=== PATIENT | female | born 1985 | race Caucasian/White ===

== ENCOUNTER → 2018-06-17 | Outpatient (CLI) | payer OTHER ==
--- NOTE | 2018-06-17 10:12 | EKG ---
FACILITY: [facility] PATIENT NAME: MARYAM VILLALOBOS : [id number] MR: [id number] V: [id number] EXAM DATE: ORDERING PHYSICIAN: MARILYN FIELDS TECHNOLOGIST: Test Reason : O99.419 Blood Pressure : / mmHG Vent. Rate : 090 BPM Atrial Rate : 090 BPM P-R Int : 160 ms QRS Dur : 084 ms QT Int : 338 ms P-R-T Axes : 028 016 017 degrees QTc Int : 413 ms Normal sinus rhythm Normal ECG No previous ECGs available Confirmed by BETH QUIGLEY ([id number]) on 06/17/2018 11:38:59 AM Referred By: Confirmed By:BETH QUIGLEY
== END ==
LOC: RESP 09:54
PROVIDERS: ATTEND Nurse Practitioner Family
DX: O99.419 Diseases of the circulatory system complicating pregnancy, unspecified trimester (principal)
CPT/HCPCS: 93005

== ENCOUNTER 2018-08-25 06:55 | Inpatient (IN) | payer OTHER ==
[~2018-08-25] VITALS: Ht 170.2 cm; Wt 110.7 kg
[2018-08-25] MEDS ORDERED: OXYTOCIN 30 UNIT/D5LR 500 ML 500 ML IV PRN ×2 (06:58→14:34)
[2018-08-25] MEDS ORDERED: ceFAZolin(*) 2GM/D5W 50ML 50 ML IVPB PRN (06:58)
[2018-08-25] MEDS ORDERED: DLR(*) 1000 ML BAG 1,000 ML IV SCH (06:58)
[2018-08-25] MEDS ORDERED: FAMOTIDINE(*) 20MG/50ML PREMIX 50 ML IVPB PRN (06:58)
[2018-08-25] MEDS ORDERED: LIDOCAINE/SOD BICARB 8.4% SYR SC PRN (07:00)
[2018-08-25] MEDS ORDERED: TERBUTALINE SULF 1 MG/ML VIAL SUBQ PRN (07:00)
[2018-08-25] MEDS ORDERED: cefOXitin/DEX(*) 2GM/50ML PREM 50 ML IVPB PRN (07:00)
[2018-08-25] MEDS ORDERED: METOCLOPRAMIDE 10 MG/2 ML SDV IVP PRN (07:00)
[2018-08-25] MEDS ORDERED: fentaNYL CITR 100 MCG/2 ML AMP IVP PRN (07:00)
[2018-08-25] MEDS ORDERED: LIDOCAINE 1% LOCAL 300 MG/30ML INJ PRN (07:00)
[2018-08-25 07:53] LABS: PLATELET COUNT, AUTOMATED 147 K/uL (150-450)
[2018-08-25 08:06] VITALS: BP 117/75; Ht 170.2 cm; Wt 110.7 kg
[2018-08-25] MEDS ORDERED: CALC-515 PO (08:06)
[2018-08-25] MEDS ORDERED: ACET325C5 (08:06)
[2018-08-25] MEDS ORDERED: PNV1COMB5 (08:06)
[2018-08-25] MEDS: LR(*) 1000 ML BAG 1,000 ML IV PRN ×3 (08:10→13:13)
--- NOTE | 2018-08-25 08:30 | History & Physical ---
History of Present Illness Age of Patient: 32 : 4 Para or TPAL: 3003 EDC per LMP: Aug 24, 2018 EDC per U/S: Aug 24, 2018 (c/w 8w6d) Estimated Gestational Age: 40.1 Chief Complaint Induction of labor for late term History of Present Illness Patient is a 32 you who presents to the hospital for late term induction of labor. She denies any NICHOLS, CP, SOB, F/C, N/V, RUQ pain, changes in vision, vaginal bleeding or discharge, LOF. +FM. She reports like her previous pregnancies, this has remained uncomplicated. History Patient's Blood Type: O Positive Rubella Status: Immune Group B Strep Screen: Negative Miscellaneous Screens/Cultures: Antibody screen neg, RPR NR, Hep B neg, GC/CT neg Obstetrical History: Past Medical History: Noncontributory Allergies: Coded Allergies: Adhesive (Verified Allergy, Mild, 01/13/09) Social History: . Three children at home. Denies alcohol or tobacco. Feels safe at home. Med Rec Home Meds Reported Medications Calcium Carbonate (TUMS) 200 Mg Tab.chew, 200 MG PO, TAB.CHEW 08/25/18 Acetaminophen (Tylenol) 325 Mg Capsule, 325 08/25/18 Pnv #116/Iron Fumarate/Fa/Dha (EXPECTA COMBO PACK) 1 Each Combo..pkg 08/25/18 Exam General Exam Vital Signs Vital Signs Date Time Temp Pulse Resp B/P (MAP) Pulse Ox O2 Delivery O2 Flow Rate FiO2 08/25/18 08:06 96.8 88 18 117/75 (89) 96 Room Air General Apperance: Alert/Awake/No Acute Distress Neuro: No Gross deficits Eyes: Normal Extraocular Movement & Vison Respiratory: No Respiratory Distress Abdomen: Gravid - Non-Tender Extremities: No Cyanosis,Clubbing or Edema Psychological: Alert & Oriented X3, Appropriate Mood & Affect Cervical Dialation: 4 Cervical Effacement (%): 70 Cervical Consistency: Soft Cervical Position: Posterior Station: -2 Presentation: Vertex Uterine Contractions(Q min): 3 Uterine Contraction Strength: Mild UC Resting Tone: Soft Fetus Feeling Movement?: Yes Heart Tones: 140 Heart Tone Variabilty: Moderate FHT Accelerations: Present FHT Decelerations: None FHT Category: I Review of Systems Constitutional: Denies: fever, chills, fatigue, malaise, insomnia, night sweats, weight loss, weight gain, other Neurological: Denies: confusion, loss of consciousness, dizziness, headaches, hearing loss, vision changes, memory loss, numbness / tingling, weakness, difficulty speaking, ringing in the ears, tremor, other HEENT: Denies: vision changes, eye pain, eye discharge, eye swelling, eye red ness, sensitivity to light, hearing loss, ear pain, ear drainage, ringing in the ears, sinus congestion, sinus headache, post nasal drip, nose bleeds, sore throat, swallowing problems, losing voice, other Cardiovascular: Denies: chest pain, swelling to legs or feet, dizziness, fainting, racing / pounding heart, other Breasts: Denies: breast pain, breast lump, nipple discharge, other breast concern Respiratory: Denies: wheezing, shortness of breath, cough, non-productive cough, productive cough, pain with breathing, chest congestion, other Gastrointestinal: Denies: abdominal pain, nausea, vomiting, loose stool, diarrhea, constipation, bloody stool, black tarry stool, rectal bleeding, bloody vomiting, coffee ground vomiting, acid reflux, heartburn, stool incontinence, loss of appetite, other Genitourinary: Denies: pain with urination, bloody urine, cloudy urine, foul smelling urine, urinary frequency, urinary urgency, urinary incontinence, waking to urinate at noc, irregular\missed period, vaginal discharge, pain with intercourse, breast mass, breast pain, other Integumentary: Denies: rash, sore, mole, mass / lump, blistering, scaling, itching, redness, drainage, acne, other Pyschiatric: Denies: depression, anxiety, mood swings, insomnia, sleeping too much, loss of appetite, increased appetite, loss of interest, feeling hopeless, feeling worthless, self harm, suicidal ideation, suicide attempt / actions, alcohol abuse, drug abuse, other Endocrine: Denies: chills, unintentional weight loss, unintentional weight gain, flushing, hair loss, Facial Hair, excessive hunger, excessive thirst, other Allergy / Immunology: Denies: rash, itching, wheezing, facial swelling, tongue swelling, itchy eyes, sinus congestion, lymph node swelling, seasonal allergies, year round allergies, other Medical Decision Making Data Points Result Diagram: 08/25/18 0744 VTE Prophylasis: Adult Deep Vein Thrombosis/Pulmonary: No Pharmacological Contraindicati: Pt at Low Risk for VTE Mechanical Contraindications: Pt at Low Risk for VTE Assessment and Plan Hospital Day: 1 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 Plan for . ) GERRY DAVIDSON MD Aug 25, 2018 08:30
[2018-08-25] MEDS ORDERED: BUPIVACAINE 0.25% MPF INJ EPI PRN (09:10)
[2018-08-25] MEDS ORDERED: LIDOCAINE/PF 2% 200MG/10ML AMP 200 MG/10 ML AMPUL EPI PRN (09:10)
[2018-08-25] MEDS ORDERED: LIDO/EPI 2% MPF 1:200,000 20ML EPI PRN (09:10)
[2018-08-25] MEDS ORDERED: fentaNYL CITR 100 MCG/2 ML AMP IT PRN (09:10)
[2018-08-25] MEDS ORDERED: FENTANYL/ROPIVACAINE 100 ML BAG EPI PRN (09:10)
[2018-08-25] MEDS ORDERED: BUPIVACAINE 0.5% INJ 30ML VIAL EPI PRN (09:10)
--- NOTE | 2018-08-25 09:27 | Labor Progress Note ---
Labor Subjective Progress Notes Feeling Movement?: Yes Vaginal Discharge/Fluid: Clear Fluid Labor Pain: Mild Neurological: No Headache, No Other Eyes: No Visual Disturbances Labor Objective Vital Signs Vital Signs Date Time Temp Pulse Resp B/P (MAP) Pulse Ox O2 Delivery O2 Flow Rate FiO2 08/25/18 08:06 96.8 88 18 117/75 (89) 96 Room Air Vaginal Discharge/Fluid?: Clear Fluid Cervical Dialation: 5 Cervical Effacement (%): 70 Cervical Consistency: Soft Cervical Position: Posterior Station: -2 Presentation: Vertex Uterine Contractions(Q min): 2 Uterine Contraction Strength: Mild UC Resting Tone: Soft Fetus Heart Tone Variabilty: Moderate FHT Accelerations: Present FHT Decelerations: None FHT Category: I Other Result Diagram: 08/25/18 0744 Assessment and Plan INFORMATION AND REFERRAL DIRECTOR Assessment: Stable INFORMATION AND REFERRAL DIRECTOR Plan: Routine Labor/Induct Care (Continue with pitocin. patient to receive epidural upon request. ) GERRY DAVIDSON MD Aug 25, 2018 09:27
[2018-08-25] MEDS ORDERED: ONDANSETRON 4 MG/2 ML VIAL ONE (10:26)
--- NOTE | 2018-08-25 10:58 | Anesthesia OB Pre-Anes Eval ---
History of Present Illness Anesthesia Start Date: Aug 25, 2018 Anesthesia Start Time: 09:45 OB Anesthesia Diagnosis: induction - elective, spontaneous ROM, other (Post BASIM 40 weeks + 6 days) EDC: Aug 24, 2018 : 4 Para: 3 Vital Signs: Vital Signs Date Time Temp Pulse Resp B/P (MAP) Pulse Ox O2 Delivery O2 Flow Rate FiO2 08/25/18 08:06 96.8 88 18 117/75 (89) 96 Room Air Pain Ratin Heart Tones: 140 Result Diagram: 08/25/18 0744 Height (Inches): 67.00 Weight (Pounds): 244 BMI (kg/m2): 38 Past Medical History Medical History: obesity Previous Anesthesia: general, epidural Attended Childbirth Classes?: No Hx Anesthesia Reactions: Yes (Low BP after past epidural) Hx Family Anesthesia Reaction: No Current Medications: pitocin Past Complications: obesity Home Meds Reported Medications Calcium Carbonate (TUMS) 200 Mg Tab.chew, 200 MG PO, TAB.CHEW 08/25/18 Acetaminophen (Tylenol) 325 Mg Capsule, 325 08/25/18 Pnv #116/Iron Fumarate/Fa/Dha (EXPECTA COMBO PACK) 1 Each Combo..pkg 08/25/18 Allergies: Coded Allergies: Adhesive (Verified Allergy, Mild, 01/13/09) Anesthesia OB ROS Neurological: No migraines/headaches, No seizures, No neuropathy, No other ENT: Denies Tooth caps, Denies Loose teeth, Denies Chipped teeth, Denies Dentures, Denies Bridges, Denies Retainers, Denies Veneers, Denies Implants, Denies Tongue ring, Denies Other Airway Class: ll GI ROS: clear liquids Last Solids Date: Aug 25, 2018 Last Solids Time: 06:45 ROS: No Herpes, No STD(s), No Liver Disease, No Renal Disease, No Other Endocrine ROS: No diabetes, No gestational diabetes, No thyroid disorder, No other Musculoskeletal ROS: low back pain ASA Classification: 2 Assessment and Plan Anesthesia Plan: CSE 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 Calm and cooperative. FABI GILL CRNA Aug 25, 2018 10:58
--- NOTE | 2018-08-25 11:17 | Procedure Note ---
Anesthetic Placement Note Anesthesia Plan: CSE Permit for Anesthesia Signed: Yes Anesthesia Technique: Patient Sitting Anesthesia Prep: Betadine (x 3 allowed to dry 3 minutes, clear fenestrated drape. Pt. and BUTCHER with hats.) Interspace: L 3-4 Local Anesthetic: 1% Lidocaine, 25 Gauge Needle Amount Local - cc's: 1.5 Anesthesia Needle: 25g Pencan w/Introducer Anesthesia Attempts: 1 (Redirections x 3 for OS) Loss of Resistance: Normal Saline Depth of CAIO (cm): 4.7 Epidural Needle Placement: No CSF, No Blood, No Parasthesia Intrathecal Needle: 27 Gauge Pencan Cerebral Spinal Fluid: Yes, Clear Catheter Insertion (cm): 3.5 Catheter Type: Peralta - Spring Wound Epidural Dressing: Tegaderm, Tape (Tape minimized for adhesive allergy 6 in strip to Rt. side.) Anesthesia Tray: Lot Number ([id number]), Expiration Date (2020-02-05), Reference Number ([id number]) Anesthesia Medications: Intrathecal Dose: mcg Fentanyl (20), mg Marcaine MPF (8), Time (1012) Epidural Test Dose: 1.5 Lido/Epi (1:200,000), Dose - mL (3), Time (1015) Epidural Infusion: 0.2% Ropivicaine, With Fentanyl 2mcg/ml, Start Time: (1034) Complications: None Comment: Slight decreases in BP were brisk in response to ephedrine. FABI GILL BUTCHER Aug 25, 2018 11:17
[2018-08-25] MEDS ORDERED: ONDANSETRON 4 MG/2 ML VIAL IVP PRN (11:20)
[2018-08-25] MEDS ORDERED: NALBUPHINE HCL 10 MG/ML AMP IVP PRN (11:20)
--- NOTE | 2018-08-25 13:41 | Labor Progress Note ---
Labor Subjective Progress Notes Subjective Patient doing well. No complaints. S/P epidural for pain control. Feeling Movement?: Yes Vaginal Discharge/Fluid: Clear Fluid Labor Pain: Comfortable Neurological: No Headache, No Other Eyes: No Visual Disturbances Labor Objective Vital Signs Vital Signs Date Time Temp Pulse Resp B/P (MAP) Pulse Ox O2 Delivery O2 Flow Rate FiO2 08/25/18 08:06 96.8 88 18 117/75 (89) 96 Room Air Cervical Dialation: 6 Cervical Effacement (%): 80 Cervical Consistency: Soft Cervical Position: Mid Station: -1 Uterine Contractions(Q min): 2 Fetus Heart Tones: 140 Heart Tone Variabilty: Moderate FHT Accelerations: Absent FHT Decelerations: None FHT Category: I Other Result Diagram: 08/25/18 0744 Assessment and Plan 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 Currently at 20 martin unitis. Will recheck in 2 hours. If no change will place IUPC to assess contraction strength. ) GERRY DAVIDSON MD Aug 25, 2018 13:41
[2018-08-25] MEDS ORDERED: NS(*) 0.9% 500 ML BAG 500 ML ONE (13:52)
[2018-08-25] MEDS ORDERED: BENZOCAINE 20% 60 ML BTL TP PRN (15:50)
[2018-08-25] MEDS ORDERED: HYDROCORTISONE 2.5% CR 30GM TB PR PRN (15:50)
[2018-08-25] MEDS: MULTIVITAMINS (PRENATAL) TAB PO SCH (15:50)
[2018-08-25] MEDS ORDERED: MAGNESIUM HYDROXIDE* 30ML UDCP PO PRN (15:50)
[2018-08-25] MEDS ORDERED: GLYCERIN/WITCH HAZEL LEAF 1 PK TP PRN (15:50)
[2018-08-25] MEDS ORDERED: ACETAMINOPHEN 325 MG TAB PO PRN (15:50)
[2018-08-25] MEDS ORDERED: LANOLIN OINT 7 GM TUBE TP PRN (15:50)
--- NOTE | 2018-08-25 16:10 | OB Delivery Note ---
Delivery Note Vaginal Delivery Type: Spont. Vaginal Delivery Delivery Date: Aug 25, 2018 Delivery Time: 15:24 Estimated Gestational Age(wks): 40.1 Length of Labor Stage I (hrs): 7.5 Length of Labor Stage II (hrs): 0.25 Labor Stage III (minutes): 7 Delivery Anesthesia: Epidural Sex: Female Infant Weight (gms): 3630 [place] Apgars: 1 Minute (7), 5 Minute (8) Estimated Blood Loss: 200 Notes: This 32 yo G4 now P3003 under epidural anesthesia progressed to complete and delivered a viable female at 1524 hrs. The baby was placed on the mother's abdomen and the nose and mouth were bulb suctioned. Delayed cord clamping was performed. The cord was then clamped and cut. Cord blood was collected. Cord gases were not. The placenta delivered spontaneously and intact with a 3 vessel cord at 1531 hrs. The vaginal mucosa, perineum, and ce rvix were inspected and noted to all be intact. Initial count was correct and verified. Tagging of laps N/A. Final count correct and verified. EBL of 200. A/P: Mother and baby both doing well. Proceed with routing and care. Asian Studies Professor in Attendence: Yes Copies to: KIMBERLY PAL MD ; GERRY DAVIDSON MD Aug 25, 2018 16:10
--- NOTE | 2018-08-25 16:34 | Anesthesia Progress Note ---
Progress/Maintenance Anesthesia Note Date: Aug 25, 2018 Anesthesia Note Time: 11:45 Pain Intensity: 1 Pump: On Pump Rate (ML/HR): 7 Sensory Level: T-8 Motor Level: Bending Knees-Bilateral (Left leg more numb than right. Pt. is comfortable. She has been on her left side more than her right.) Position: Left, Tilt FABI GILL CRNA Aug 25, 2018 16:34
--- NOTE | 2018-08-25 16:39 | Anesthesia Progress Note ---
Progress/Maintenance Anesthesia Note Date: Aug 25, 2018 Anesthesia Note Time: 14:15 Pain Intensity: 7 (Pt has experienced a sudden increase in pain and pressure, RN check reveals her to be complete. ) Pump: On Pump Rate (ML/HR): 7 Motor Level: Bending Knees-Bilateral Dilatation: 10 Position: Semi-Fowlers (Feet up in Stirrups) Drug Bolus: 0.2% Ropivicaine (7 ml), Fentanyl 2mcg/ml Anesthesia Treatment: The bolus rendered patient more comfortable in about 7 minutes. 08/14 pain FABI GILL CRNA Aug 25, 2018 16:39
--- NOTE | 2018-08-25 16:43 | Anesthesia OB Pre-Anes Eval ---
History of Present Illness EDC: Aug 24, 2018 : 4 Para: 3 Pain Ratin Result Diagram: 08/25/18 0744 Height (Inches): 67.00 Weight (Pounds): 244 BMI (kg/m2): 38 Past Medical History Home Meds Reported Medications Calcium Carbonate (TUMS) 200 Mg Tab.chew, 200 MG PO, TAB.CHEW 08/25/18 Acetaminophen (Tylenol) 325 Mg Capsule, 325 08/25/18 Pnv #116/Iron Fumarate/Fa/Dha (EXPECTA COMBO PACK) 1 Each Combo..pkg 08/25/18 Allergies: Coded Allergies: Adhesive (Verified Allergy, Mild, 01/13/09) Assessment and Plan Epidural Catheter Removal: Removed Catheter Intact, Yes, Removed by: (Fabi Zhou CRNA) Removal Date: Aug 25, 2018 Removal Time: 16:41 Condition Pt taking PO without problem. Epidural stick site is dressed w sterile bandaid, and is without redness swelling or drainage. Pt. and present for review of signs of infection and agree to seek medical advice, should any occur. FABI ZHOU CRNA Aug 25, 2018 16:43
[2018-08-25 16:48] VITALS: BP 120/67
[2018-08-25] MEDS: IBUPROFEN 800 MG TAB PO SCH (17:05)
[2018-08-25 19:21] VITALS: BP 117/68
[2018-08-25] MEDS: DOCUSATE CALCIUM 240 MG CAP PO SCH (21:00)
[2018-08-25] MEDS: APAP/HYDROCODONE 325/5 TAB PO PRN (23:36)
[2018-08-25 23:38] VITALS: BP 116/76
[2018-08-26 03:03] VITALS: BP 109/62
[2018-08-26] MEDS: APAP/HYDROCODONE 325/5 TAB PO PRN ×2 (07:41→15:30)
[2018-08-26 07:50] VITALS: BP 113/73
--- NOTE | 2018-08-26 08:01 | OB/GYN Progress Note ---
OB Subjective Progress Notes GI: POS Flatus; NEG Nausea, NEG Vomiting : Voiding Well, Vaginal Bleeding (decreased from yesterday) Pain: Comfortable, Tolerating PO Pain Meds Neurological: No Headache, No Other Eyes: No Visual Disturbances OB Objective Physical Exam Vital Signs Date Time Temp Pulse Resp B/P (MAP) Pulse Ox O2 Delivery O2 Flow Rate FiO2 08/26/18 03:03 98.4 73 18 109/62 (78) Room Air 08/25/18 23:38 94 Intake and Output 08/26/18 07:00 Intake Total 3150 ml Output Total 2600 ml Balance 550 ml Intake IV Total 3150 ml Output Urine Total 2600 ml # Voids 4 General Appearance: Alert/Awake/No Acute Distress, Afebrile Neurological: No Gross deficits Eyes: Normal Extraocular Movement & Vison Respiratory: No Respiratory Distress Abdomen: Soft, Non-Tender, Non-Distended, Fundus Firm (below umbilicus) Extremities: No Cyanosis,Clubbing or Edema, Edema (minimal edema) Psychological: Alert & Oriented X3, Appropriate Mood & Affect Result Diagram: 08/26/18 0600 Assessment and Plan Post Day: 1 Hospital Day: 2 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
[2018-08-26] MEDS ORDERED: LOR5/325 PO (08:07)
--- NOTE | 2018-08-26 08:11 | OB/GYN Discharge Summary ---
Discharge Summary Reason for Hosp/Final Diag: (1) state Status: Acute Hospital Course & Plan: Patient was admitted to the hospital for late term induction. She progressed to complete and delivered a viable female infant. For further details please see the delivery summary. She remained in her room for care. The remainder of her hospital course was unremarkable. As she was doing well and meeting all of her hospital milestones, she was discharged home in stable condition on PPD #1. Lates Vital Signs Vital Signs Date Time Temp Pulse Resp B/P (MAP) Pulse Ox O2 Delivery O2 Flow Rate FiO2 08/25/18 19:21 97.6 18 117/68 (84) Room Air 08/25/18 16:48 95 96 Weight (Pounds): 244 Result Diagram: 08/25/18 0744 Condition: Improved Discharge: Home Home Meds Active Scripts Hydrocodone Bit/Acetaminophen (HYDROCODON-ACETAMINOPHEN 5-325) 1 Each Tablet, 1 EACH PO Q4-6H PRN for PAIN, #15 TAB 0 Refills Prov:GERRY DAVIDSON MD 08/26/18 Reported Medications Calcium Carbonate (TUMS) 200 Mg Tab.chew, 200 MG PO, TAB.CHEW 08/25/18 Acetaminophen (Tylenol) 325 Mg Capsule, 325 08/25/18 Pnv #116/Iron Fumarate/Fa/Dha (EXPECTA COMBO PACK) 1 Each Combo..pkg 08/25/18 Follow up with: Dr. Mayo [phone] Follow up in: 6 wks PP or PO Discharge Diet: As Tolerates Discharge Activity: As Tolerates, Pelvic Rest GERRY DAVIDSON MD Aug 26, 2018 01:13
[2018-08-26] MEDS: IBUPROFEN 800 MG TAB PO SCH ×3 (09:00→16:54)
[2018-08-26] MEDS: MULTIVITAMINS (PRENATAL) TAB PO SCH (09:02)
[2018-08-26] MEDS: DOCUSATE CALCIUM 240 MG CAP PO SCH (09:02)
[2018-08-26 13:15] VITALS: BP 111/73
--- NOTE | 2018-08-26 14:31 | Anesthesia Post Eval Note ---
Anesthesia Post Eval Note Hematology Test 08/25/18 07:44 08/26/18 06:00 Neutrophils (%) (Auto) 71.3 % (39.4-72.5) Lymphocytes (%) (Auto) 21.4 % (17.6-49.6) Monocytes (%) (Auto) 6.6 % (4.1-12.4) Eosinophils (%) (Auto) 0.4 % (0.4-6.7) Basophils (%) (Auto) 0.3 % (0.3-1.4) Nucleated RBC Relative Count (auto) 0.0 /100WBC Neutrophils # (Auto) 5.1 K/uL (2.0-7.4) Lymphocytes # (Auto) 1.5 K/uL (1.3-3.6) Monocytes # (Auto) 0.5 K/uL (0.3-1.0) Eosinophils # (Auto) 0.0 K/uL (0.0-0.5) Basophils # (Auto) 0.0 K/uL (0.0-0.1) Nucleated RBC Absolute Count (auto) 0.00 K/uL HIV (1&2) Antibody Negative (NEGATIVE) Red Blood Count 3.47 M/uL (4.17-5.56) Mean Corpuscular Volume 89.9 fL (80.0-96.0) Mean Corpuscular Hemoglobin 30.8 pg (26.0-33.0) Mean Corpuscular Hemoglobin Concent 34.3 g/dL (32.0-36.0) Red Cell Distribution Width 13.7 % (11.5-14.5) Mean Platelet Volume 9.1 fL (7.2-11.1) Chemistry Test 08/25/18 07:44 08/26/18 06:00 Neutrophils (%) (Auto) 71.3 % (39.4-72.5) Lymphocytes (%) (Auto) 21.4 % (17.6-49.6) Monocytes (%) (Auto) 6.6 % (4.1-12.4) Eosinophils (%) (Auto) 0.4 % (0.4-6.7) Basophils (%) (Auto) 0.3 % (0.3-1.4) Nucleated RBC Relative Count (auto) 0.0 /100WBC Neutrophils # (Auto) 5.1 K/uL (2.0-7.4) Lymphocytes # (Auto) 1.5 K/uL (1.3-3.6) Monocytes # (Auto) 0.5 K/uL (0.3-1.0) Eosinophils # (Auto) 0.0 K/uL (0.0-0.5) Basophils # (Auto) 0.0 K/uL (0.0-0.1) Nucleated RBC Absolute Count (auto) 0.00 K/uL HIV (1&2) Antibody Negative (NEGATIVE) White Blood Count 9.4 k/uL (4.5-11.0) Red Blood Count 3.47 M/uL (4.17-5.56) Hemoglobin 10.7 g/dL (12.0-16.0) Hematocrit 31.2 % (34.0-47.0) Mean Corpuscular Volume 89.9 fL (80.0-96.0) Mean Corpuscular Hemoglobin 30.8 pg (26.0-33.0) Mean Corpuscular Hemoglobin Concent 34.3 g/dL (32.0-36.0) Red Cell Distribution Width 13.7 % (11.5-14.5) Platelet Count 140 K/uL (150-450) Mean Platelet Volume 9.1 fL (7.2-11.1) Vital Signs Date Time Temp Pulse Resp B/P (MAP) Pulse Ox O2 Delivery O2 Flow Rate FiO2 08/26/18 13:15 97.6 72 16 111/73 (86) 96 Room Air Pt able to participate in Eval: Yes Cardiovascular Status: Satisfactory Respiratory Status: Satisfactory Pain Managment: Satisfactory PO Nausea/Vomiting: Satisfactory Temperature Management: Satisfactory Mental Status: Satisfactory, Alert, Oriented X3 Post-Op Hydration Status: Satisfactory, Tolerating PO Well, Voiding w/o Difficulty Anesthesia Type: CSE Anesthesia Tolerance: Demonstrates full motor and sensation return to lower extremities. Cheerful with baby and family in room. Bandaid removed and stick site is w/o pain redness swelling or drainage. Signs of infection reviewed. FABI GILL CRNA Aug 26, 2018 14:31
[2018-08-26] MEDS ORDERED: MEASLES,MUMP,RUBELLA VAC 0.5ML SUBQ ONE (15:50)
[2018-08-26] MEDS ORDERED: INFLUENZA VIRUS VAC 0.5ML SYR IM ONLY ONE (15:50)
[2018-08-26] MEDS ORDERED: DIPHTH/TETANUS/ACEL. PERTUSSIS IM ONLY ONE (15:50)
== END 2018-08-26 17:35 | disposition home or self-care (01) | DRG 807 ==
LOC: OB 06:55
PROVIDERS: ADMIT Obstetrics & Gynecology; ATTEND Obstetrics & Gynecology
PROC: 10E0XZZ Delivery of Products of Conception, External Approach (ICD-10-PCS; principal; 2018-08-25)
PROC: 10907ZC Drainage of Amniotic Fluid, Therapeutic from Products of Conception, Via Natural or Artificial Opening (ICD-10-PCS; 2018-08-25)
PROC: 3E033VJ Introduction of Other Hormone into Peripheral Vein, Percutaneous Approach (ICD-10-PCS; 2018-08-25)
DX: O48.0 Post-term pregnancy (principal); Z37.0 Single live birth; Z3A.40 40 weeks gestation of pregnancy
CPT/HCPCS: 36415; 85025; 85027; 86703; 86850; 86900; 86901; J2001; J2405; J2590; J3010; J7040; J7120; S0020